=== PATIENT | female | born 1990 | race Two or more races ===

== ENCOUNTER → 2019-01-19 | Outpatient (REF) | payer OTHER ==
[~2019-01-19] MED LIST: CBD OIL INH; GARC500T PO; IBUP-1114 PO; NAPR-837 PO; NEXP1IMP SC; ROBA500T PO; [UNRECOGNIZED DRUG - OTHER] PO
== END ==
LOC: M SFHCLERA 16:49
PROVIDERS: ATTEND Nurse Practitioner Family
DX: J02.9 Acute pharyngitis, unspecified (principal)

== ENCOUNTER 2019-01-24 18:17 | Emergency (ER) | payer OTHER ==
[~2019-01-24] VITALS: Ht 175.3 cm; Wt 106.4 kg
[2019-01-24] MEDS ORDERED: [UNRECOGNIZED DRUG - OTHER] PO (20:20)
[2019-01-24] MEDS ORDERED: GARC500T PO (20:20)
[2019-01-24] MEDS ORDERED: IBUP-1114 PO (20:22)
[2019-01-24] MEDS ORDERED: NEXP1IMP SC (20:29)
[2019-01-24] MEDS ORDERED: CBD OIL INH (20:29)
[2019-01-24] MEDS ORDERED: ROBA500T PO (21:13)
[2019-01-24] MEDS ORDERED: NAPR-837 PO (21:13)
[2019-01-24] MEDS ORDERED: METHOCARBAMOL 750 MG TAB PO ONE (21:15)
[2019-01-24] MEDS ORDERED: KETOROLAC 60 MG/2 ML VIAL (J1885) IM ONE (21:15)
[2019-01-24 21:27] VITALS: BP 117/75
== END 2019-01-24 21:31 | disposition home or self-care (01) ==
LOC: M ED 18:17
DX: M54.5 Low back pain (principal); F41.1 Generalized anxiety disorder; Z77.098 Contact with and (suspected) exposure to other hazardous, chiefly nonmedicinal, chemicals; Z79.899 Other long term (current) drug therapy
CPT/HCPCS: 96372; 99284; J1885

== ENCOUNTER 2019-03-08 20:50 | Emergency (ER) | payer OTHER ==
[~2019-03-08] VITALS: Ht 175.3 cm; Wt 104.5 kg
[2019-03-08] MEDS ORDERED: LIDOCAINE W/EPINEPHRINE 1% 20ML VIAL SC ONE (22:30)
[2019-03-08] MEDS ORDERED: ADACEL/BOOSTRIX VACCINE (DIPHTH/PERTUSS/ACELL/TETANUS)0.5ML SYR (90715) IM ONE (22:30)
[2019-03-08 22:58] VITALS: BP 117/74
== END 2019-03-08 22:59 | disposition home or self-care (01) ==
LOC: M ED 20:50
DX: S61.412A Laceration without foreign body of left hand, initial encounter (principal); W22.8XXA Striking against or struck by other objects, initial encounter; Y92.013 Bedroom of single-family (private) house as the place of occurrence of the external cause; F33.9 Major depressive disorder, recurrent, unspecified; Z79.899 Other long term (current) drug therapy; Z79.3 Long term (current) use of hormonal contraceptives; F17.210 Nicotine dependence, cigarettes, uncomplicated

== ENCOUNTER → 2019-04-27 | Outpatient (REF) | payer OTHER ==
[2019-04-28 11:26] LABS: BASO # 0.1 10^3/uL (0.0-0.2); BASO % 0.5 % (0.0-1.0); EOS # 0.2 10^3/uL (0.0-0.50); EOS % 1.9 % (0.0-3.0); HEMATOCRIT 40.9 % (36.0-47.0); HEMOGLOBIN 13.7 g/dl (12.0-15.5); LYMPH # 3.7 10^3/uL (1.5-4.5); LYMPH % 35.3 % (24.0-44.0); MEAN CORPUSCULAR HEMOGLOBIN 33.7 pg (27.0-33.0); MEAN CORPUSCULAR HGB CONC 33.5 g/dl (32.0-36.5); MEAN CORPUSCULAR VOLUME 100.5 fl (80.0-96.0); MONO # 0.7 10^3/uL (0.0-0.8); MONO % 6.3 % (0.0-5.0); NEUTROPHILS # 5.8 10^3/uL (1.8-7.7); NEUTROPHILS % 55.8 % (36.0-66.0); PLATELET COUNT, AUTOMATED 340 10^3/uL (150-450); RED BLOOD COUNT 4.07 10^6/uL (4.00-5.40); WHITE BLOOD COUNT 10.5 10^3/uL (4.0-10.0)
[2019-04-28 11:42] LABS: ALBUMIN 3.8 GM/DL (3.2-5.2); ALT/SGPT 20 U/L (12-78); BILIRUBIN,TOTAL 0.3 MG/DL (0.2-1.0); BLOOD UREA NITROGEN 11 MG/DL (7-18); CALCIUM LEVEL 8.9 MG/DL (8.5-10.1); CARBON DIOXIDE LEVEL 26 MEQ/L (21-32); CHLORIDE LEVEL 108 MEQ/L (98-107); CREATININE FOR GFR 0.85 MG/DL (0.55-1.30); FERRITIN 28 NG/ML (8-252); FREE T4 0.88 NG/DL (0.76-1.46); GLOMERULAR FILTRATION RATE > 60.0 (>60); GLUCOSE, FASTING 81 MG/DL (70-100); IRON (FE) 73 UG/DL (50-170); POTASSIUM SERUM 4.2 MEQ/L (3.5-5.1); SODIUM LEVEL 139 MEQ/L (136-145); TOTAL PROTEIN 7.2 GM/DL (6.4-8.2)
== END ==
LOC: M SFHCLERA 19:38
PROVIDERS: ATTEND Physician Assistant
DX: R53.83 Other fatigue (principal)
CPT/HCPCS: 80053; 82728; 83540; 84439; 84443; 85025; G0463

== ENCOUNTER → 2020-03-09 | Outpatient (CLI) | payer OTHER ==
--- NOTE | 2020-03-12 08:15 | REP ---
Clinical: Trauma. Technique: AP, lateral, bilateral oblique views of the right hand. Findings: There is an angulated fracture involving the distal aspect of the fifth metacarpal bone with overlying soft tissue swelling (boxer's fracture). Remainder of the examination appears normal. Impression: Boxer's fracture of the fifth metacarpal bone. Electronically Signed by Eder Downs MD 03/09/2020 04:05 P
--- NOTE | 2020-03-12 08:15 | REP ---
Clinical: Trauma. Technique: AP, lateral, bilateral oblique views right wrist . Findings: The carpal bones, surrounding osseous structures, soft tissues, and joint spaces are normal. There is no evidence for acute fracture or dislocation. No subcutaneous emphysema or radiodense foreign body. Impression: Normal wrist series. No acute fracture or dislocation Electronically Signed by Eder Downs MD 03/09/2020 03:58 P
== END ==
LOC: M LRY 15:36
PROVIDERS: ATTEND Physician Assistant
DX: S62.306A Unspecified fracture of fifth metacarpal bone, right hand, initial encounter for closed fracture (principal); Y92.9 Unspecified place or not applicable; Y93.9 Activity, unspecified; Y99.9 Unspecified external cause status
CPT/HCPCS: 29125; 73110; 73130; G0463

== ENCOUNTER 2020-12-09 13:44 | Emergency (ER) | payer OTHER ==
[~2020-12-09] VITALS: Ht 175.3 cm; Wt 111.2 kg
[2020-12-09 13:56] VITALS: BP 140/66
--- NOTE | 2020-12-09 14:27 | REP ---
INDICATION: fall injury COMPARISON: None. TECHNIQUE: There are four views of the right toes. FINDINGS: There is no fracture or dislocation. Mineralization and joint spaces are normal. There are no calcifications or foreign bodies. There is hallux valgus. IMPRESSION: Hallux valgus. No fracture or dislocation <Electronically signed by Michael Geller > 12/09/20 [id number]
== END 2020-12-09 15:47 | disposition home or self-care (01) ==
LOC: M ED 13:44
DX: S93.501A Unspecified sprain of right great toe, initial encounter (principal); W10.8XXA Fall (on) (from) other stairs and steps, initial encounter; Y92.098 Other place in other non-institutional residence as the place of occurrence of the external cause; Y93.01 Activity, walking, marching and hiking; Y99.8 Other external cause status; F32.9 Major depressive disorder, single episode, unspecified; R51.9 Headache, unspecified; F17.210 Nicotine dependence, cigarettes, uncomplicated